=== PATIENT | female | born 1990 | race Caucasian/White ===

== ENCOUNTER → 2016-08-10 | Outpatient (CLI) | payer OTHER ==
[~2016-08-10] MED LIST: AZITTAB PO; BCPILLS PO; ETONMIS VAGRING; HYCUDL5 PO; ZLFUNK
== END | disposition home or self-care (01) ==
LOC: C.PAPS 09:56
PROVIDERS: ATTEND Obstetrics & Gynecology
DX: Z12.4 Encounter for screening for malignant neoplasm of cervix (principal)

== ENCOUNTER → 2016-08-10 | Outpatient (CLI) | payer OTHER | END | disposition home or self-care (01) | LOC: C.LABSPEC 14:49 | PROVIDERS: ATTEND Obstetrics & Gynecology | DX: Z01.419 Encounter for gynecological examination (general) (routine) without abnormal findings (principal); Z11.3 Encounter for screening for infections with a predominantly sexual mode of transmission ==

== ENCOUNTER → 2017-01-05 | Outpatient (CLI) | payer OTHER ==
--- NOTE | 2017-01-05 15:53 | DIAGNOSTIC IMAGING REPORT ---
ULTRASOUND RIGHT VENOUS DOPP LOWER EXT UNILAT CLINICAL HISTORY: Right leg cellulitis. COMPARISON STUDY: No previous studies for comparison. FINDINGS: Real-time and color flow Doppler imaging were performed. Flow was seen within the femoral, popliteal and calf veins with no intraluminal thrombus demonstrated. The saphenous vein is patent. A hypoechoic focus within the subcutaneous portion of the posterior knee, likely represents focal edema. IMPRESSION: No evidence of right lower extremity DVT. Electronically signed by: Isauro Brown M.D. 01/05/2017 3:51 PM Dictated Date/Time: 01/05/2017 3:50 PM
[2017-01-05 16:02] LABS: BASO % 0.3 %; BASO ABS # 0.03 K/uL (0-0.2); COMPLETE YES; EOS % 1.7 %; HEMATOCRIT 38.6 % (37-47); IG% 0.2 %; LYMPH % 20.9 %; LYMPH ABS # 1.92 K/uL (1.2-3.4); MEAN CELL VOLUME 86.7 fL (80-100); MEAN CORPUSCULAR HEMOGLOBIN 30.3 pg (25-34); MEAN PLATELET VOLUME 9.8 fL (7.4-10.4); MONO % 4.9 %; PLATELET COUNT 337 K/uL (130-400); RED BLOOD COUNT 4.45 M/uL (4.2-5.4); WHITE BLOOD COUNT 9.19 K/uL (4.8-10.8)
[2017-01-05 18:29] LABS: LYME DISEASE AB IGG NEG (NEG)
[2017-01-05 18:41] LABS: LYME DISEASE AB IGM POS (NEG)
[2017-01-11 00:01] LABS: 18KDIGG BAND NONREACTIVE (NONREACTIVE); 23KDIGG BAND NONREACTIVE (NONREACTIVE); 23KDIGM BAND REACTIVE (NONREACTIVE); 28KDIGG BAND NONREACTIVE (NONREACTIVE); 30KDIGG BAND NONREACTIVE (NONREACTIVE); 39KDIGG BAND NONREACTIVE (NONREACTIVE); 39KDIGM BAND NONREACTIVE (NONREACTIVE); 41KDIGG BAND REACTIVE (NONREACTIVE); 41KDIGM BAND REACTIVE (NONREACTIVE); 45KDIGG BAND REACTIVE (NONREACTIVE); 58KDIGG BAND NONREACTIVE (NONREACTIVE); 66KDIGG BAND NONREACTIVE (NONREACTIVE); 93KDIGG BAND NONREACTIVE (NONREACTIVE)
== END | disposition home or self-care (01) ==
LOC: C.ULTR 15:10
PROVIDERS: ATTEND Nurse Practitioner
DX: L03.115 Cellulitis of right lower limb (principal)

== ENCOUNTER → 2017-09-29 | Outpatient (CLI) | payer OTHER | END | disposition home or self-care (01) | LOC: C.LAB 06:46 | PROVIDERS: ATTEND Family Medicine | DX: Z00.00 Encounter for general adult medical examination without abnormal findings (principal); Z13.1 Encounter for screening for diabetes mellitus; Z13.220 Encounter for screening for lipoid disorders ==

== ENCOUNTER 2024-01-22 18:57 | Inpatient (IN) ==
[2024-01-22] MEDS ORDERED: OXYTOCIN 30 UNITS/NSS 30 UNITS/500 ML BAG IV PRN (19:50)
[2024-01-22] MEDS ORDERED: LIDOCAINE 1% LOCAL 20 ML VIAL INFIL PRN (19:50)
--- NOTE | 2024-01-22 19:55 | Labor Progress Brief Note ---
Date of Service January 22, 2024 Subjective 33yo @ 39w5d for IOL due to umbilical vein varix and A1GDM. Feng placement unsuccessful due to closed thick and high cervix. Offered cytotec overnight vs return in AM to begin then. Patient agreeable to staying for cytotec. Assessment & Plan (1) GDM (gestational diabetes mellitus): Plan: IOL for GDM, Varix. Cytotec accepted in lieu of Feng which was not able to be placed. Physical Exam Constitutional: WD/WN, vitals as above Eyes: PERRL, conjunctivae normal, anicteric sclerae ENMT: external ear and nose normal, oropharynx normal Neck: supple Respiratory: normal respiratory effort and able to speak in complete sentences; no respiratory distress Cardiovascular: Rate/Rhythm: regular rate and regular rhythm Extremities: + pedal edema Gastrointestinal (Abdomen): Gravid / AGA, nontender Musculoskeletal: no cyanosis or clubbing, extremities motor strength 5/5 Skin: no rashes, warm and dry Psychiatric: A+Ox3, euthymic affect Genitourinary: Speculum/Bimanual Exam: no vaginal lesions, no vaginal bleeding and uterus nontender OB Exam Abdomen: + vertex and + estimated weight (7) Manual OB Exam: + cervical dilation (closed), + cervical effacement (thick), + station high and + amniotic fluid (No leaking evident) OB Exam Monitor Tracing: + external FHT monitor used, + external uterine monitor used and + category I Lymphatic: no cervical or axillary lymphadenopathy Results & Data Vital Signs (Past 12 Hours) Vital Signs Temp Pulse Resp BP 01/22/24 19:07 97.9 F 18 01/22/24 19:03 83 126/66 Coding Level of Care Code None Diagnoses GDM (gestational diabetes mellitus) O24.419
[2024-01-22] MEDS: miSOPROStoL 25 MCG TAB PV ONE (20:10)
[2024-01-22 21:57] LABS: Hematocrit (blood only) 40.4 % (37.0-47.0); Hemoglobin 13.7 g/dl (12.0-16.0); Mean Corpuscular Hgb Conc 33.9 g/dL (32.0-36.0); Mean Corpuscular Volume 88.4 fL (80.0-100.0); Mean Platelet Volume 11.2 fL (9.4-12.4); Platelet Count 276 K/uL (130-400); RDW Coefficient of Variation 13.4 % (11.5-14.5); RDW Standard Deviation 43.6 fL (36.4-46.3); Red Blood Count 4.57 M/uL (4.20-5.40); White Blood Count 11.57 K/ul (4.8-10.8)
[2024-01-23] MEDS: LACTATED RINGER'S 1,000 ML IV PRN (07:08)
--- NOTE | 2024-01-23 07:22 | Labor Progress Brief Note ---
Date of Service January 23, 2024 Subjective Feeling contractions but tolerating them. Assessment & Plan (1) complicated by umbilical cord varix, antepartum: Plan: Since 1st dose of cytotec, patient has been cameron too frequently to allow redosing. As the cervix has meaningfully changed from cl/th/hi and firm to 1/50/-2/soft/post, I think we can stop attempting to repeat cytotec and move on to pitocin. Patient's tolerance of cervical exams is limited and I think this will also be more comfortable for her than reattempting mason balloon at this time. Although an argument could be made for applying the mason while starting pitocin, I think the extra time her labor may take overall without a balloon is still preferable given patient's discomfort with vaginal exams/procedures. (2) GDM (gestational diabetes mellitus): (3) Small for dates affecting management of mother: Admission and Anticipated Discharge Date Admission Date: January 22, 2024 Physical Exam Genitourinary: Cervix soft, 50%, posterior but still closed at beginning of exam. This time, however, I was able to manually dilate to 1cm and palpate the skull. So at completion of exam 1/50/-2. FHT Cat 1 [place] Q3-4, palpate moderate per RN. Results & Data Vital Signs (Past 12 Hours) Vital Signs Temp Pulse Resp BP 01/23/24 02:57 98.1 F 73 18 111/63 01/22/24 23:53 18 01/22/24 23:53 98.1 F 18 01/22/24 23:53 83 01/22/24 23:53 118/58 L 01/22/24 19:07 97.9 F 18 Coding Level of Care Code None Diagnoses complicated by umbilical cord varix, antepartum O26.899 GDM (gestational diabetes mellitus) O24.419 Small for dates affecting management of mother O36.5990
[2024-01-23] MEDS: OXYTOCIN 30 UNITS/NSS 30 UNITS/500 ML BAG IV PRN (08:01)
--- NOTE | 2024-01-23 11:39 | History & Physical Report ---
Date of Service January 23, 2024 Assessment & Plan (1) complicated by umbilical cord varix, antepartum: Plan: Patient admitted last night for induction of labor for umbilical cord varix, rec'd 1 dose cytotec last night after attempt at mason bulb placement andt hen started on pitocin. Pelvic exams are extremely painful for patient, unable to really get a good exam. I discussed with her that would suggest getting an epidural, then will plan for pelvic exam and possibly place mason bulb if needed at that point. She is agreeable. Admission and Anticipated Discharge Date Admission Date: January 22, 2024 History of Present Illness Chief Complaint: IOL Primary Care Provider: Aurelia Iniguez MD 33yo @ 39 12/21, IOL for umbilical vein varix. Umbilical vein varix at 36 wks (seen persistently on our scans) -2x/wk nst/dvp, mfm [id number]-ame seen on MFM scans *IOL 01/23/24 - Rec deliver 39 0/7 - 39 12/21 - echo recommend covid booster GDM *Begin monthly Growth US's Allergies Allergy/AdvReac Type Severity Reaction Status Date / Time No Known Drug Allergies Allergy Unknown Verified 01/22/24 10:21 Home Medications Medication Instructions Recorded Confirmed Type prenat.vits,amanda,[id number] 1 tab PO QAM 04/18/22 01/22/24 History acetone (urine) test (Ketone Urine #50 ea 12/04/23 01/22/24 Rx Test strips) blood sugar diagnostic (OneTouch #150 ea 12/04/23 01/22/24 Rx Verio test strips) blood-glucose meter (OneTouch #1 ea 12/04/23 01/22/24 Rx Verio Reflect Meter) lancets 33 gauge (OneTouch Delica #150 ea 12/04/23 01/22/24 Rx Plus Lancet) Patient History Medical History Varicella vaccination Generalized anxiety disorder Acute Lyme disease Acne, unspecified History of anxiety No current issues Hx of migraines Missed Dysmenorrhea Surgical History Hx of wisdom tooth extraction Family History Grandmother (Maternal) Breast cancer Father Hypertension Aunt Skin cancer Grandfather (Maternal) Stomach cancer Denies family history of Ovarian cancer Prostate cancer Myocardial infarction Colorectal cancer Social History (Updated 06/14/23 @ 14:07 by Mily Lynch) Smoking Status: Never smoker Second Hand Exposure: No; Do You Dip or Chew Tobacco: No; Hx Alcohol Use: No Hx Substance Use: No Preferred Language: Mongolian Communication Ability: Effective Visual Impairment: No Limitations Hearing Ability: Normal Judge Clerk Required: No Beliefs That Will Affect Care: None marital status: marital status details: Chavez Huber (33) [phone] Current Living Situation: Spouse Current Living Situation Comment: Lives with spouse and 1 dog current occupational status: employed current occupation: Volunteer supervisor [employer] Other Information That Helps Us Care for You: No Feels Safe at Home: Yes Childhood Exposure to Second-Hand Smoke: Yes Diet: regular caffeine: Yes during the past year weight has: remained stable Dental Care, Regularly: Yes Physical Activity Frequency: Daily Seatbelt Use: always Assistive Devices: Contacts and Glasses Review of Systems All systems reviewed & are unremarkable except as noted in HPI & below Physical Exam Physical Exam: Unable to perform SVE d/t pain. FHT Cat 1 [place] Q 2 Constitutional: WD/WN, vitals as above Respiratory: normal respiratory effort, lungs clear to auscultation no respiratory distress Cardiovascular: Rate/Rhythm: regular rate and regular rhythm Gastrointestinal (Abdomen): Inspection/Auscultation: abdomen normal to inspection Percussion/Palpation: abdomen soft; abdomen nontender Gravid. No s/s chorio or abruption. Skin: no rashes, warm and dry Psychiatric: A+Ox3, euthymic affect Results & Data Vital Signs (Past 12 Hours) Vital Signs Temp Pulse Resp BP 01/23/24 11:29 83 113/73 01/23/24 11:00 20 01/23/24 11:00 20 01/23/24 10:30 20 01/23/24 10:30 20 01/23/24 10:07 74 117/57 L 01/23/24 09:01 85 102/63 01/23/24 08:02 74 115/68 01/23/24 07:15 36.6 C 20 01/23/24 07:09 77 121/78 07/09/24 02:57 36.7 C 73 18 111/63 01/22/24 23:53 18 01/22/24 23:53 36.7 C 18 01/22/24 23:53 83 01/22/24 23:53 118/58 L Coding Level of Care Code None Diagnoses complicated by umbilical cord varix, antepartum O26.899
--- NOTE | 2024-01-23 12:05 | Delivery Summary ---
Vaginal Delivery Summary Date of Service January 23, 2024 Vaginal Delivery Summary [facility] Vaginal Delivery Summary: Pre-delivery diagnoses: 33yo Post-delivery diagnoses: Procedure: Surgeon: Dayna Arora DO Complications: none Findings: Viable . Apgars: . Weight pending, please see nursery records Estimated blood loss: Description of delivery: The patient progressed to complete with epidural anesthesia. She then began to push. She spontaneously vaginally delivered a viable from the cephalic presentation. The head delivered in RABIA position. The anterior shoulder delivered, followed by the posterior shoulder, followed by the body. The baby was placed on mother's abdomen and a spontaneous cry was heard. Delayed cord clamping was employed, and the cord was doubly clamped and cut. A segment was retained for cord gases. Cord blood was obtained. The placenta was delivered spontaneously intact with a 3-vessel cord. The uterus and vagina were swept of clots and debris. IV pitocin was given. The uterus became firm. The cervix, vagina, and perineum were inspected and no lacerations were noted. Excellent hemostasis was observed. The mother and baby are recovering in stable and good condition in the room. Sponge and instrument counts were correct x 2. Dayna Arora DO [facility] Vaginal Delivery Charge Delivery Type Details: [facility]
--- NOTE | 2024-01-23 12:13 | Anesthesiology Consultation ---
Date of Service January 23, 2024 Assessment & Plan Chart Review Chart Review: Acceptable Risk for Labor Epidural Consults Requested none ASA ASA2 Proposed Anesthesia Anesthesia Type: Labor Epidural Risk / Benefits Reviewed With: PT / POA / Parent / Guardian, Accepts Plan and Informed Consent Obtained History Height/Weight Height: 5 ft 2 in Weight: 77.564 kg Allergies Allergy/AdvReac Type Severity Reaction Status Date / Time No Known Drug Allergies Allergy Unknown Verified 01/22/24 10:21 Medications Home Medications Medication Instructions Recorded Confirmed Last Taken prenat.vits,amanda,[id number] 1 tab PO QAM 04/18/22 01/22/24 01/22/24 09:00 acetone (urine) test (Ketone Urine #50 ea 12/04/23 01/22/24 Unknown Test strips) blood sugar diagnostic (OneTouch #150 ea 12/04/23 01/22/24 Unknown Verio test strips) blood-glucose meter (OneTouch #1 ea 12/04/23 01/22/24 Unknown Verio Reflect Meter) lancets 33 gauge (OneTouch Delica #150 ea 12/04/23 01/22/24 Unknown Plus Lancet) Active Medications Generic Name Dose Route Start Last Admin Trade Name Freq PRN Reason Stop Dose Admin Lactated Ringer's 1,000 mls @ 125 mls/hr 01/22/24 19:50 01/23/24 12:02 Lr IV 01/24/24 19:49 999 mls/hr .Q8H PRN Administration L&D Protocol Protocol Oxytocin 30 units in 500 mls @ 12 mls/hr 01/23/24 06:54 01/23/24 11:30 Pitocin 30 Units/Nss IV 01/25/24 06:53 0.72 units/hr .Q24H PRN 12 mls/hr Labor Induction/Augmentation Titration Protocol 0.72 UNITS/HR Past Medical History Medical History Varicella vaccination Generalized anxiety disorder Acute Lyme disease Acne, unspecified History of anxiety No current issues Hx of migraines Missed Dysmenorrhea Exercise / Class Metabolic Activity II 4-5 Yardwork/Stairs/Walk up hill Past Family History Family History Grandmother (Maternal) Breast cancer Father Hypertension Aunt Skin cancer paternal Grandfather (Maternal) Stomach cancer Denies family history of Ovarian cancer Prostate cancer Myocardial infarction Colorectal cancer Past Surgical History Surgical History Hx of wisdom tooth extraction Past Anesthesia History No Hx of Anesthesia Complications and No Family Hx of Anesthesia Complications History of PONV No Hx of PONV and No Hx of Motion Sickness Social History Smoking Status: Never smoker Do You Dip or Chew Tobacco: No Hx Alcohol Use: No Alcohol type: beer, wine and hard liquor alcohol intake frequency: holidays/special occasions only Hx Substance Use: No substance use type: does not use Physical Exam Vital Signs Last Vital Signs Temp 97.9 F 01/23/24 07:15 Pulse 83 01/23/24 11:29 Resp 20 01/23/24 11:30 BP 113/73 01/23/24 11:29 ENMT Mouth: no dentition abnormality Thyromental Distance: > or= 3.5 Finger Breadths Mallampati Class: II Neck normal visual inspection Respiratory normal respiratory effort Auscultation: lungs clear to auscultation bilaterally Cardiovascular Rate/Rhythm: regular rate and regular rhythm Testing Laboratory Results 01/22/24 20:47
[2024-01-23] MEDS ORDERED: diphenhydrAMINE 50 MG/ML VIAL IV PRN (12:51)
[2024-01-23] MEDS ORDERED: ROPIVACAINE 0.5% PF 5 MG/ML 20 ML VIAL EPI PRN (12:51)
[2024-01-23] MEDS ORDERED: NALBUPHINE HCL 5 MG in SYRINGE 0 ML IV PRN (12:51)
[2024-01-23] MEDS ORDERED: NALOXONE HCL 0.4 MG/1 ML VIAL/CARP IV PRN (12:51)
[2024-01-23] MEDS ORDERED: ePHEDrine sulfate 50 MG/ML AMP IV PRN (12:51)
[2024-01-23] MEDS ORDERED: LIDOCAINE 2% MPF LOCAL 5 ML VIAL EPI PRN (12:51)
[2024-01-23] MEDS ORDERED: NALOXONE HCL 1 MG in SODIUM CHLORIDE 0.9% 1,000 ML IV PRN (12:51)
[2024-01-23] MEDS ORDERED: SODIUM CHLORIDE 0.9% PF INJ 10 ML VIAL EPI PRN (12:51)
[2024-01-23] MEDS ORDERED: ONDANSETRON INJ 2 MG/ML 2 ML VIAL IV PRN (12:51)
[2024-01-23] MEDS: BUPIVACAINE 0.25% PF 30 ML VIAL EPI STA (13:10)
[2024-01-23] MEDS: fentANYL 2 MCG/ML BUPIVacaine 0.125%-NSS 100ML BAG EPI PRN (13:10)
[2024-01-23] MEDS: LIDOCAINE 2%/EPINEPHRINE 1:200,000 20 ML PF EPI STA (13:10)
--- NOTE | 2024-01-23 14:26 | Labor Progress Brief Note ---
Date of Service January 23, 2024 Subjective Patient has now become comfortable after epidural. FHT cat 1 [place] Q 2-4 Mason bulb placed, 35cc sterile water. Tolerated both exam and placement of mason well. Continue pitocin. Assessment & Plan Admission and Anticipated Discharge Date Admission Date: January 22, 2024 Results & Data Vital Signs (Past 12 Hours) Vital Signs Temp Pulse Resp BP Pulse Ox 01/23/24 14:24 70 98 01/23/24 14:23 73 106/71 01/23/24 14:19 72 99 01/23/24 14:14 75 99 01/23/24 14:09 66 98 01/23/24 14:08 68 101/59 L 01/23/24 14:04 71 99 01/23/24 14:00 20 01/23/24 14:00 20 01/23/24 13:59 76 99 01/23/24 13:54 72 108/57 L 99 01/23/24 13:49 74 97 01/23/24 13:44 70 98 01/23/24 13:39 75 94/52 L 98 01/23/24 13:34 76 98 01/23/24 13:30 20 01/23/24 13:30 36.6 C 20 01/23/24 13:29 74 97 01/23/24 13:24 79 99 01/23/24 13:22 164 H 99/58 L 01/23/24 13:20 18 01/23/24 13:20 18 01/23/24 13:19 75 98 01/23/24 13:17 79 114/59 L 01/23/24 13:15 73 20 115/59 L 01/23/24 13:14 80 98 01/23/24 13:13 73 119/62 01/23/24 13:11 79 118/72 01/23/24 13:10 20 01/23/24 13:10 20 01/23/24 13:09 79 97 01/23/24 13:08 76 107/56 L 01/23/24 13:05 74 97/50 L 01/23/24 13:04 75 98 01/23/24 13:01 85 128/78 01/23/24 12:59 107 H 98 01/23/24 12:54 89 99 01/23/24 12:49 80 98 01/23/24 12:45 82 118/62 01/23/24 12:44 84 98 01/23/24 12:41 95 H 149/90 H 01/23/24 12:39 100 H 98 01/23/24 12:38 90 139/60 01/23/24 12:36 89 132/90 01/23/24 12:34 98 01/23/24 12:34 80 01/23/24 12:34 86 135/81 01/23/24 12:30 94 H 167/67 H 01/23/24 12:29 90 97 01/23/24 12:28 86 151/72 H 01/23/24 12:26 89 144/65 H 01/23/24 12:24 99 01/23/24 12:24 93 H 01/23/24 12:24 90 143/83 H 01/23/24 12:19 100 H 89 L 01/23/24 12:15 83 136/77 01/23/24 12:14 89 100 01/23/24 12:00 20 01/23/24 12:00 20 01/23/24 11:30 20 01/23/24 11:30 20 01/23/24 11:29 83 113/73 01/23/24 11:00 20 01/23/24 11:00 20 01/23/24 10:30 20 01/23/24 10:30 20 01/23/24 10:07 74 117/57 L 01/23/24 09:01 85 102/63 01/23/24 08:02 74 115/68 01/23/24 07:15 36.6 C 20 01/23/24 07:09 77 121/78 01/23/24 02:57 36.7 C 73 18 111/63 Coding Level of Care Code None
[2024-01-23] MEDS: fentaNYL citrate PF 100 MCG/2 ML VIAL EPI STA (15:44)
[2024-01-23] MEDS: SODIUM CHLORIDE 0.9% PF INJ 10 ML VIAL EPI STA (15:44)
[2024-01-23] MEDS ORDERED: NURSING L&D Epidural Breakthrough Pain Update ONE (19:28)
--- NOTE | 2024-01-23 20:07 | Labor Progress Brief Note ---
Date of Service January 23, 2024 Subjective Feng bulb is out. FHT Cat 1 [place] Q 2-4 SVE 5/80/-1 AROM clear fluid. Continue pitocin. Assessment & Plan Admission and Anticipated Discharge Date Admission Date: January 22, 2024 Results & Data Vital Signs (Past 12 Hours) Vital Signs Temp Pulse Resp BP Pulse Ox 01/23/24 20:04 95 H 99 01/23/24 19:59 66 99 01/23/24 19:54 71 98 01/23/24 19:52 72 119/69 01/23/24 19:49 68 98 01/23/24 19:44 71 98 01/23/24 19:39 76 97 01/23/24 19:37 72 113/68 01/23/24 19:34 75 98 01/23/24 19:29 67 98 01/23/24 19:24 71 98 01/23/24 19:23 68 112/67 01/23/24 19:19 66 98 01/23/24 19:14 67 99 01/23/24 19:09 67 108/70 98 01/23/24 19:04 73 98 01/23/24 19:01 36.8 C 18 01/23/24 19:00 20 01/23/24 19:00 20 01/23/24 18:59 75 98 01/23/24 18:54 99 01/23/24 18:54 74 01/23/24 18:54 75 105/58 L 01/23/24 18:49 84 98 01/23/24 18:44 81 98 01/23/24 18:39 104 H 98 01/23/24 18:38 75 108/59 L 01/23/24 18:34 86 98 01/23/24 18:30 20 01/23/24 18:30 20 01/23/24 18:29 79 98 01/23/24 18:25 68 99/58 L 01/23/24 18:24 68 98 01/23/24 18:19 72 98 01/23/24 18:14 72 98 01/23/24 18:09 74 101/58 L 98 01/23/24 18:07 73 100/59 L 01/23/24 18:04 71 98 01/23/24 18:00 18 01/23/24 18:00 18 01/23/24 17:59 96 H 98 07/09/24 17:54 80 98 01/23/24 17:53 68 98/53 L 01/23/24 17:49 96 H 99 01/23/24 17:44 73 99 01/23/24 17:39 98 01/23/24 17:39 64 01/23/24 17:39 69 98/56 L 01/23/24 17:34 72 99 01/23/24 17:30 20 01/23/24 17:30 20 01/23/24 17:29 65 97 01/23/24 17:24 63 97 01/23/24 17:23 67 99/52 L 01/23/24 17:19 65 98 01/23/24 17:14 68 98 01/23/24 17:09 75 99 01/23/24 17:04 61 98 01/23/24 17:00 20 01/23/24 17:00 20 01/23/24 16:59 65 98 01/23/24 16:54 67 98 01/23/24 16:52 67 104/57 L 01/23/24 16:49 65 97 01/23/24 16:44 63 97 01/23/24 16:39 62 97 01/23/24 16:38 60 111/58 L 01/23/24 16:34 69 97 01/23/24 16:30 20 01/23/24 16:30 20 01/23/24 16:29 70 97 01/23/24 16:24 76 133/67 98 01/23/24 16:19 67 97 01/23/24 16:15 36.7 C 01/23/24 16:14 74 98 01/23/24 16:09 67 98 01/23/24 16:07 68 104/61 01/23/24 16:04 64 98 01/23/24 16:00 20 01/23/24 16:00 20 01/23/24 15:59 60 98 01/23/24 15:54 62 98 01/23/24 15:53 63 105/58 L 01/23/24 15:49 64 98 01/23/24 15:44 66 98 01/23/24 15:39 60 98 01/23/24 15:37 63 102/58 L 01/23/24 15:34 63 97 01/23/24 15:30 20 01/23/24 15:30 20 01/23/24 15:29 62 98 01/23/24 15:24 98 01/23/24 15:24 66 01/23/24 15:24 64 100/57 L 01/23/24 15:19 59 L 98 01/23/24 15:14 59 L 97 01/23/24 15:09 59 L 98 01/23/24 15:07 58 L 96/53 L 01/23/24 15:04 59 L 98 01/23/24 15:00 20 01/23/24 15:00 20 01/23/24 14:59 64 97 01/23/24 14:54 60 98 01/23/24 14:52 62 107/65 01/23/24 14:49 61 98 01/23/24 14:44 61 98 01/23/24 14:39 62 98 01/23/24 14:37 60 106/65 01/23/24 14:34 61 98 01/23/24 14:30 20 01/23/24 14:30 20 01/23/24 14:29 63 97 01/23/24 14:24 70 98 01/23/24 14:23 73 106/71 01/23/24 14:19 72 99 01/23/24 14:14 75 99 01/23/24 14:09 66 98 01/23/24 14:08 68 101/59 L 01/23/24 14:04 71 99 01/23/24 14:00 20 01/23/24 14:00 20 01/23/24 13:59 76 99 01/23/24 13:54 72 108/57 L 99 01/23/24 13:49 74 97 01/23/24 13:44 70 98 01/23/24 13:39 75 94/52 L 98 01/23/24 13:34 76 98 01/23/24 13:30 20 01/23/24 13:30 36.6 C 20 01/23/24 13:29 74 97 01/23/24 13:24 79 99 01/23/24 13:22 164 H 99/58 L 01/23/24 13:20 18 01/23/24 13:20 18 01/23/24 13:19 75 98 01/23/24 13:17 79 114/59 L 01/23/24 13:15 73 20 115/59 L 01/23/24 13:14 80 98 01/23/24 13:13 73 119/62 01/23/24 13:11 79 118/72 01/23/24 13:10 20 01/23/24 13:10 20 01/23/24 13:09 79 97 01/23/24 13:08 76 107/56 L 01/23/24 13:05 74 97/50 L 01/23/24 13:04 75 98 01/23/24 13:01 85 128/78 01/23/24 12:59 107 H 98 01/23/24 12:54 89 99 01/23/24 12:49 80 98 01/23/24 12:45 82 118/62 01/23/24 12:44 84 98 01/23/24 12:41 95 H 149/90 H 01/23/24 12:39 100 H 98 01/23/24 12:38 90 139/60 01/23/24 12:36 89 132/90 01/23/24 12:34 98 01/23/24 12:34 80 01/23/24 12:34 86 135/81 01/23/24 12:30 94 H 167/67 H 01/23/24 12:29 90 97 01/23/24 12:28 86 151/72 H 01/23/24 12:26 89 144/65 H 01/23/24 12:24 99 01/23/24 12:24 93 H 01/23/24 12:24 90 143/83 H 01/23/24 12:19 100 H 89 L 01/23/24 12:15 83 136/77 01/23/24 12:14 89 100 01/23/24 12:00 20 01/23/24 12:00 20 01/23/24 11:35 36.6 C 01/23/24 11:30 20 01/23/24 11:30 20 01/23/24 11:29 83 113/73 01/23/24 11:00 20 01/23/24 11:00 01/23/24 10:30 20 01/23/24 10:30 20 01/23/24 10:07 74 117/57 L 01/23/24 09:01 85 102/63 Coding Level of Care Code None
[2024-01-24] MEDS: BUPIVACAINE 0.25% PF 30 ML VIAL EPI PRN (00:20)
[2024-01-24] MEDS: fentaNYL citrate PF 100 MCG/2 ML VIAL EPI PRN (00:20)
--- NOTE | 2024-01-24 00:33 | Anesthesia Procedure Note ---
Date of Service January 24, 2024 Anesthesia Epidural Re-Dose Vital Signs Temp Pulse Resp BP Pulse Ox 98.2 F 69 18 96/53 L 96 01/23/24 23:58 01/24/24 00:30 01/23/24 23:58 01/24/24 00:30 01/24/24 00:30 Notes Pain Intensity: 4 Dilatation (cm): 5.0 Effacement (%): 80 Called by nursing to evaluate epidural as the patient is having increased pain. The epidural was re-dosed with the following medications after negative aspiration of the epidural catheter for CSF/HEME. 3mL of 0.25% Bupivacaine and 50 mcg of fentanyl After Epidural Re-Dose Mental Status: alert / awake / arousable Pain: improving with treatment Airway Patency, RR, SpO2: stable & adequate BP & HR: stable & adequate
[2024-01-24] MEDS ORDERED: Nursing to Pharmacy Communication SCH (01:00)
--- NOTE | 2024-01-24 02:24 | Labor Progress Brief Note ---
Date of Service January 24, 2024 Subjective Comfortable with epidural. FHT Cat 1 [employer] Q 2 SVE 8/100/0 Continue labor. Assessment & Plan Admission and Anticipated Discharge Date Admission Date: January 22, 2024 Results & Data Vital Signs (Past 12 Hours) Vital Signs Temp Pulse Resp BP Pulse Ox 01/24/24 02:21 99 H 98 01/24/24 02:16 77 100 01/24/24 02:10 58 L 99 01/24/24 02:05 58 L 98 01/24/24 02:00 99 01/24/24 02:00 62 01/24/24 02:00 61 95/51 L 01/24/24 01:55 55 L 98 01/24/24 01:50 55 L 98 01/24/24 01:45 66 98 01/24/24 01:44 55 L 96/53 L 01/24/24 01:40 55 L 97 01/24/24 01:35 55 L 98 01/24/24 01:30 98 01/24/24 01:30 57 L 01/24/24 01:30 59 L 95/54 L 01/24/24 01:25 54 L 98 01/24/24 01:20 56 L 98 01/24/24 01:15 64 97 01/24/24 01:14 69 95/50 L 01/24/24 01:10 65 98 01/24/24 01:05 64 97 01/24/24 01:00 55 L 98 01/24/24 00:59 58 L 92/50 L 01/24/24 00:55 60 97 01/24/24 00:53 58 L 90/54 L 01/24/24 00:50 60 97 01/24/24 00:48 59 L 97/52 L 01/24/24 00:45 60 97 01/24/24 00:43 59 L 100/53 L 01/24/24 00:40 61 97 01/24/24 00:38 64 18 98/56 L 01/24/24 00:35 66 97 01/24/24 00:32 68 100/58 L 01/24/24 00:30 69 96/53 L 96 01/24/24 00:28 77 92/52 L 01/24/24 00:25 98 01/24/24 00:25 70 01/24/24 00:25 68 105/63 01/24/24 00:19 74 98 01/24/24 00:14 64 98 01/24/24 00:09 66 98 01/24/24 00:07 68 106/57 L 01/24/24 00:04 76 98 01/23/24 23:59 76 98 01/23/24 23:58 18 01/23/24 23:58 36.8 C 18 01/23/24 23:54 89 99 01/23/24 23:53 105 H 123/57 L 01/23/24 23:49 86 98 01/23/24 23:44 76 98 01/23/24 23:39 73 98 01/23/24 23:38 74 103/58 L 01/23/24 23:34 70 98 01/23/24 23:29 70 98 01/23/24 23:24 80 94/53 L 98 01/23/24 23:19 70 97 01/23/24 23:14 62 97 01/23/24 23:09 69 95/51 L 98 01/23/24 23:04 69 97 01/23/24 22:59 69 96 01/23/24 22:54 74 97 01/23/24 22:52 67 87/54 L 01/23/24 22:49 65 97 01/23/24 22:44 67 97 01/23/24 22:39 68 85/51 L 97 01/23/24 22:34 65 97 01/23/24 22:29 76 97 01/23/24 22:24 72 97 01/23/24 22:22 65 90/54 L 01/23/24 22:19 69 97 01/23/24 22:14 71 98 01/23/24 22:10 82 99/55 L 01/23/24 22:09 82 96 01/23/24 22:06 18 01/23/24 22:06 36.7 C 18 01/23/24 22:04 89 98 01/23/24 21:59 72 97 01/23/24 21:54 69 115/61 97 01/23/24 21:49 77 98 01/23/24 21:44 71 98 01/23/24 21:39 77 98 01/23/24 21:38 77 119/71 01/23/24 21:34 75 98 01/23/24 21:29 72 98 01/23/24 21:24 70 97 01/23/24 21:23 75 115/76 01/23/24 21:19 77 97 01/23/24 21:14 72 98 01/23/24 21:09 73 99 01/23/24 21:08 73 113/77 01/23/24 21:04 70 98 01/23/24 20:59 82 99 01/23/24 20:54 71 99 01/23/24 20:53 77 121/64 01/23/24 20:49 84 99 01/23/24 20:44 80 98 01/23/24 20:39 78 99 01/23/24 20:38 85 115/73 01/23/24 20:34 76 98 01/23/24 20:29 81 98 01/23/24 20:25 100 H 116/70 01/23/24 20:24 98 H 96 01/23/24 20:19 107 H 98 01/23/24 20:15 18 01/23/24 20:15 36.5 C 18 01/23/24 20:14 80 97 01/23/24 20:09 95 H 97 01/23/24 20:08 85 129/66 01/23/24 20:04 95 H 99 01/23/24 19:59 66 99 01/23/24 19:54 71 98 01/23/24 19:52 72 119/69 01/23/24 19:49 68 98 01/23/24 19:44 71 98 01/23/24 19:39 76 97 01/23/24 19:37 72 113/68 01/23/24 19:34 75 98 01/23/24 19:29 67 98 01/23/24 19:24 71 98 01/23/24 19:23 68 112/67 01/23/24 19:19 66 98 01/23/24 19:14 67 99 01/23/24 19:09 67 108/70 98 01/23/24 19:04 73 98 01/23/24 19:01 36.8 C 18 01/23/24 19:00 20 01/23/24 19:00 20 01/23/24 18:59 75 98 01/23/24 18:54 99 01/23/24 18:54 74 01/23/24 18:54 75 105/58 L 01/23/24 18:49 84 98 01/23/24 18:44 81 98 01/23/24 18:39 104 H 98 01/23/24 18:38 75 108/59 L 01/23/24 18:34 86 98 01/23/24 18:30 20 01/23/24 18:30 20 01/23/24 18:29 79 98 01/23/24 18:25 68 99/58 L 01/23/24 18:24 68 98 01/23/24 18:19 72 98 01/23/24 18:14 72 98 01/23/24 18:09 74 101/58 L 98 01/23/24 18:07 73 100/59 L 01/23/24 18:04 71 98 01/23/24 18:00 18 01/23/24 18:00 18 01/23/24 17:59 96 H 98 01/23/24 17:54 80 98 01/23/24 17:53 68 98/53 L 01/23/24 17:49 96 H 99 01/23/24 17:44 73 99 01/23/24 17:39 98 01/23/24 17:39 64 01/23/24 17:39 69 98/56 L 01/23/24 17:34 72 99 01/23/24 17:30 20 01/23/24 17:30 20 01/23/24 17:29 65 97 01/23/24 17:24 63 97 01/23/24 17:23 67 99/52 L 01/23/24 17:19 65 98 01/23/24 17:14 68 98 01/23/24 17:09 75 99 01/23/24 17:04 61 98 01/23/24 17:00 20 01/23/24 17:00 20 01/23/24 16:59 65 98 01/23/24 16:54 67 98 01/23/24 16:52 67 104/57 L 01/23/24 16:49 65 97 01/23/24 16:44 63 97 01/23/24 16:39 62 97 01/23/24 16:38 60 111/58 L 01/23/24 16:34 69 97 01/23/24 16:30 20 01/23/24 16:30 20 01/23/24 16:29 70 97 01/23/24 16:24 76 133/67 98 01/23/24 16:19 67 97 01/23/24 16:15 36.7 C 01/23/24 16:14 74 98 01/23/24 16:09 67 98 01/23/24 16:07 68 104/61 01/23/24 16:04 64 98 01/23/24 16:00 20 01/23/24 16:00 20 01/23/24 15:59 60 98 01/23/24 15:54 62 98 01/23/24 15:53 63 105/58 L 01/23/24 15:49 64 98 01/23/24 15:44 66 98 01/23/24 15:39 60 98 01/23/24 15:37 63 102/58 L 01/23/24 15:34 63 97 01/23/24 15:30 20 01/23/24 15:30 20 01/23/24 15:29 62 98 01/23/24 15:24 98 01/23/24 15:24 66 01/23/24 15:24 64 100/57 L 01/23/24 15:19 59 L 98 01/23/24 15:14 59 L 97 01/23/24 15:09 59 L 98 01/23/24 15:07 58 L 96/53 L 01/23/24 15:04 59 L 98 01/23/24 15:00 20 01/23/24 15:00 20 01/23/24 14:59 64 97 01/23/24 14:54 60 98 01/23/24 14:52 62 107/65 01/23/24 14:49 61 98 01/23/24 14:44 61 98 01/23/24 14:39 62 98 01/23/24 14:37 60 106/65 01/23/24 14:34 61 98 01/23/24 14:30 20 01/23/24 14:30 20 01/23/24 14:29 63 97 01/23/24 14:24 70 98 Coding Level of Care Code None
--- NOTE | 2024-01-24 08:00 | Labor Progress Brief Note ---
Date of Service January 24, 2024 Subjective ready to push. does not seem to feel ctx. caput at +3 per nurse Assessment & Plan (1) Encounter for induction of labor: (2) complicated by umbilical cord varix, antepartum: (3) GDM (gestational diabetes mellitus): Plan now ready to push. aware i am assuming care. fhts categ 1. Admission and Anticipated Discharge Date Admission Date: January 22, 2024 Physical Exam Constitutional: WD/WN, vitals as above Genitourinary: OB Exam Monitor Tracing: + external FHT monitor used (140 baseline, mod variability), + external uterine monitor used, + category I and + normal FHT variability Results & Data Vital Signs (Past 12 Hours) Vital Signs Temp Pulse Resp BP Pulse Ox 01/24/24 07:56 100 H 01/24/24 07:51 84 98 01/24/24 07:46 97 H 121/61 98 01/24/24 07:45 95 H 85 L 01/24/24 07:41 78 97 01/24/24 07:36 86 98 01/24/24 07:31 92 H 97 01/24/24 07:30 85 20 103/49 L 01/24/24 07:26 89 98 01/24/24 07:21 79 97 01/24/24 07:16 78 97 01/24/24 07:14 76 120/54 L 01/24/24 07:11 86 97 01/24/24 07:10 20 01/24/24 07:10 98.4 F 20 01/24/24 07:06 83 97 01/24/24 07:01 66 96 01/24/24 07:00 68 104/58 L 01/24/24 06:56 83 97 01/24/24 06:51 74 97 01/24/24 06:46 81 97 01/24/24 06:44 76 98/55 L 01/24/24 06:41 98 H 98 01/24/24 06:36 68 97 01/24/24 06:31 67 97 01/24/24 06:29 70 103/55 L 01/24/24 06:26 67 98 01/24/24 06:21 68 98 01/24/24 06:16 68 98 01/24/24 06:14 73 102/57 L 01/24/24 06:11 89 99 01/24/24 06:06 67 98 01/24/24 06:01 82 99 01/24/24 06:00 74 100/56 L 01/24/24 05:56 68 98 01/24/24 05:51 72 97 01/24/24 05:46 69 98 01/24/24 05:45 76 96/53 L 01/24/24 05:41 82 98 01/24/24 05:36 81 98 01/24/24 05:31 109 H 98 01/24/24 05:30 97 H 114/65 01/24/24 05:26 99.0 F 86 18 98 01/24/24 05:21 107 H 98 01/24/24 05:16 79 98 01/24/24 05:14 85 125/71 01/24/24 05:11 75 98 01/24/24 05:06 77 97 01/24/24 05:01 77 97 01/24/24 04:59 77 124/65 01/24/24 04:56 76 97 01/24/24 04:51 75 97 01/24/24 04:46 70 98 01/24/24 04:44 80 119/60 01/24/24 04:41 74 98 01/24/24 04:36 70 98 01/24/24 04:31 73 98 01/24/24 04:29 85 106/57 L 01/24/24 04:26 68 98 01/24/24 04:21 71 98 01/24/24 04:16 67 99 01/24/24 04:15 92 H 111/62 01/24/24 04:11 70 99 01/24/24 04:06 99 H 98 01/24/24 04:01 71 99 01/24/24 04:00 69 104/54 L 01/24/24 03:56 72 99 01/24/24 03:51 82 99 01/24/24 03:50 18 01/24/24 03:50 98.1 F 18 01/24/24 03:46 107 H 100 01/24/24 03:44 75 107/56 L 01/24/24 03:41 79 98 01/24/24 03:36 92 H 99 01/24/24 03:31 105 H 97 01/24/24 03:30 116 H 121/75 01/24/24 03:26 105 H 97 01/24/24 03:21 115 H 98 01/24/24 03:16 105 H 98 01/24/24 03:11 91 H 99 01/24/24 03:06 72 98 01/24/24 03:01 72 98 01/24/24 02:59 68 110/63 01/24/24 02:56 69 98 01/24/24 02:51 77 98 01/24/24 02:46 82 98 01/24/24 02:45 71 100/58 L 01/24/24 02:41 69 98 01/24/24 02:36 71 98 01/24/24 02:31 89 98 01/24/24 02:30 73 98/54 L 01/24/24 02:26 76 98 01/24/24 02:21 99 H 98 01/24/24 02:19 16 01/24/24 02:19 98.2 F 16 01/24/24 02:16 77 100 01/24/24 02:10 58 L 99 01/24/24 02:05 58 L 98 01/24/24 02:00 99 01/24/24 02:00 62 01/24/24 02:00 61 95/51 L 01/24/24 01:55 55 L 98 01/24/24 01:50 55 L 98 01/24/24 01:45 66 98 01/24/24 01:44 55 L 96/53 L 01/24/24 01:40 55 L 97 01/24/24 01:35 55 L 98 01/24/24 01:30 98 01/24/24 01:30 57 L 01/24/24 01:30 59 L 95/54 L 01/24/24 01:25 54 L 98 01/24/24 01:20 56 L 98 01/24/24 01:15 64 97 01/24/24 01:14 69 95/50 L 01/24/24 01:10 65 98 01/24/24 01:05 64 97 01/24/24 01:00 55 L 98 01/24/24 00:59 58 L 92/50 L 01/24/24 00:55 60 97 01/24/24 00:53 58 L 90/54 L 01/24/24 00:50 60 97 01/24/24 00:48 59 L 97/52 L 01/24/24 00:45 60 97 01/24/24 00:43 59 L 100/53 L 01/24/24 00:40 61 97 01/24/24 00:38 64 18 98/56 L 01/24/24 00:35 66 97 01/24/24 00:32 68 100/58 L 01/24/24 00:30 69 96/53 L 96 01/24/24 00:28 77 92/52 L 01/24/24 00:25 98 01/24/24 00:25 70 01/24/24 00:25 68 105/63 01/24/24 00:19 74 98 01/24/24 00:14 64 98 01/24/24 00:09 66 98 01/24/24 00:07 68 106/57 L 01/24/24 00:04 76 98 01/23/24 23:59 76 98 01/23/24 23:58 18 01/23/24 23:58 98.2 F 18 01/23/24 23:54 89 99 01/23/24 23:53 105 H 123/57 L 01/23/24 23:49 86 98 01/23/24 23:44 76 98 01/23/24 23:39 73 98 01/23/24 23:38 74 103/58 L 01/23/24 23:34 70 98 01/23/24 23:29 70 98 01/23/24 23:24 80 94/53 L 98 01/23/24 23:19 70 97 01/23/24 23:14 62 97 01/23/24 23:09 69 95/51 L 98 01/23/24 23:04 69 97 01/23/24 22:59 69 96 01/23/24 22:54 74 97 01/23/24 22:52 67 87/54 L 01/23/24 22:49 65 97 01/23/24 22:44 67 97 01/23/24 22:39 68 85/51 L 97 01/23/24 22:34 65 97 01/23/24 22:29 76 97 01/23/24 22:24 72 97 01/23/24 22:22 65 90/54 L 01/23/24 22:19 69 97 01/23/24 22:14 71 98 01/23/24 22:10 82 99/55 L 01/23/24 22:09 82 96 01/23/24 22:06 18 01/23/24 22:06 98.1 F 18 01/23/24 22:04 89 98 01/23/24 21:59 72 97 01/23/24 21:54 69 115/61 97 01/23/24 21:49 77 98 01/23/24 21:44 71 98 01/23/24 21:39 77 98 01/23/24 21:38 77 119/71 01/23/24 21:34 75 98 01/23/24 21:29 72 98 01/23/24 21:24 70 97 01/23/24 21:23 75 115/76 01/23/24 21:19 77 97 01/23/24 21:14 72 98 01/23/24 21:09 73 99 01/23/24 21:08 73 113/77 01/23/24 21:04 70 98 01/23/24 20:59 82 99 01/23/24 20:54 71 99 01/23/24 20:53 77 121/64 01/23/24 20:49 84 99 01/23/24 20:44 80 98 01/23/24 20:39 78 99 01/23/24 20:38 85 115/73 01/23/24 20:34 76 98 01/23/24 20:29 81 98 01/23/24 20:25 100 H 116/70 01/23/24 20:24 98 H 96 01/23/24 20:19 107 H 98 01/23/24 20:15 18 01/23/24 20:15 97.7 F 18 01/23/24 20:14 80 97 01/23/24 20:09 95 H 97 01/23/24 20:08 85 129/66 01/23/24 20:04 95 H 99 01/23/24 19:59 66 99 Coding Level of Care Code None Diagnoses Encounter for induction of labor Z34.90 complicated by umbilical cord varix, antepartum O26.899 GDM (gestational diabetes mellitus) O24.419
--- NOTE | 2024-01-24 08:54 | Delivery Summary ---
Vaginal Delivery Summary Date of Service January 24, 2024 Vaginal Delivery Summary and 2nd Degree LAC The patient dilated to complete and pushed to deliver a viable female infant Apgars 8 and 9 via over 2nd degree perineal laceration. Mouth and nose bulb suctioned at perineum. Shoulders and body delivered with ease. Infant was vigorous and crying at . Cord clamped at 40 seconds of life and infant to maternal abdomen where the cord was then doubly clamped and cut. Placenta delivered spontaneously and intact, three-vessel cord. Hemostasis achieved with dilute pitocin and uterine massage. Laceration repaired with 3-0 vicryl in usual fashion and left labial separation reapproximated with 4-0 vicryl. Cervix and sulci intact. QBL 260 cc. Mother and baby stable in recovery. [facility] Charge Delivery Type Details: and 2nd Degree LAC
[2024-01-24] MEDS ORDERED: HYDROCORTISONE ACETATE 25 MG SUPP PR PRN (09:39)
[2024-01-24] MEDS ORDERED: DIPHTHER/TETAN/PERTUS Vaccine (Tdap, Adol/Adult) 0.5mL IM ONE (09:39)
[2024-01-24] MEDS ORDERED: ACETAMINOPHEN 325 MG TAB PO PRN (09:39)
[2024-01-24] MEDS ORDERED: oxyCODONE/ACETAMINOPHEN 5mg/325mg TAB PO PRN (09:39)
[2024-01-24] MEDS ORDERED: OXYTOCIN 30 UNITS/NSS 30 UNITS/500 ML BAG IV PRN (09:43)
[2024-01-24] MEDS: OXYTOCIN 20 UNITS/LR 1,002 ML IV SCH (10:21)
--- NOTE | 2024-01-24 10:30 | Anesthesia Procedure Note ---
Date of Service January 24, 2024 Anesthesia Post Epidural Note Vital Signs Vital Signs: Temp Pulse Resp BP Pulse Ox 37.4 C 74 20 108/60 89 L 01/24/24 08:55 01/24/24 10:01/24/24 09:55 01/24/24 10:01/24/24 08:50 Pain Intensity Lower Back: Pain Intensity: 2 Notes Mental Status: alert / awake / arousable and participated in evaluation Nausea / Vomiting: adequately controlled Pain: adequately controlled Airway Patency, RR, SpO2: stable & adequate BP & HR: stable & adequate Hydration State: stable & adequate Neuraxial Anesthesia: was administered and sensory block is resolving Anesthetic Complications: no major complications apparent Epidural: Removed without complications and With tip intact Notes: Patient had accidental dural puncture during procedure. Currently denies JOSEPH, vision changes, tinnitus. Counseled patient on signs and symptoms to look for in regards to PDPH and to contact us if any new symptoms arise.
[2024-01-24] MEDS: BENZOCAINE 20% SPRY 85 APPLN/85 GM CAN EXT PRN (11:07)
[2024-01-24] MEDS: IBUPROFEN 600 MG TAB PO PRN (11:07)
[2024-01-24] MEDS ORDERED: ACETAMINOPHEN SUSP 325 MG/10.15 ML UDC PO PRN (12:20)
[2024-01-24] MEDS ORDERED: IBUPROFEN 600 MG TAB PO PRN (12:20)
[2024-01-24] MEDS ORDERED: IBUPROFEN 200 MG/10 ML UDC PO PRN (12:23)
[2024-01-24] MEDS ORDERED: oxyCODONE HCL SOLN 5 MG/5 ML UDC PO PRN (12:24)
[2024-01-24] MEDS: DOCUSATE SODIUM 100 MG CAP PO SCH (20:26)
--- NOTE | 2024-01-25 06:12 | Obstetrical Progress Note ---
Date of Service <Brandon Flannery DO - Last Filed: 01/25/24 07:17> January 25, 2024 Assessment & Plan <Brandon Flannery DO - Last Filed: 01/25/24 07:17> (1) Encounter for assessment: Patient is PPD 1 s/p and doing well - Eating well, voiding well, ambulating well - vitals reviewed and within normal limits - pain well controlled with analgesics - OOB, ambulation, diet progression as tolerated - Blood type: B+, GBS neg, rubella immune - Plan to discharge today - After discharge, 6 week follow up with OB visit type: exam and care immediately after delivery Qualified Code(s): Z39.0 - Encounter for care and examination of mother immediately after delivery <Felicita Santos MD, FACOG - Last Filed: 01/25/24 07:25> (1) Encounter for assessment: Subjective <Brandon Flannery DO - Last Filed: 01/25/24 07:17> 33 yo post- day 1 s/p w/ sutured 2 degree perineal laceration and hx of GDM Ambulation: ambulating normally Voiding: no voiding problems Passing Gas:: Yes Diet Tolerance:: regular diet Lochia:: Small Feeding Type:: breast feeding Current Pain Level: 2/10 Resting comfortably this AM in NAD. Denies JOSEPH, CP, SOB, N/V/D, LE pain/swelling. Physical Exam <Brandon Flannery DO - Last Filed: 01/25/24 07:17> General: patient resting comfortably, NAD, non-toxic in appearance, answers questions appropriately. Skin: warm, dry, intact HEENT: NC/AT, anicteric sclera, conjunctiva without injection, moist mucus membranes. Heart: +S1/S2, regular, no m/r/g Lungs: equal air entry bilaterally, no rales/rhonchi/wheezes Abd: +BS, soft, NT/ND, uterine fundus firm at umbilicus Ext: warm, no clubbing/cyanosis or edema, John's neg. Neuro: nonfocal, speech intact, no facial droop, moving all extremities. Results & Data <Brandon Flannery DO - Last Filed: 01/25/24 07:17> Vital Signs (Past 12 Hours) Vital Signs Temp Pulse Resp BP Pulse Ox O2 Del Method 01/25/24 04:04 36.6 C 72 16 99/64 L 98 Room Air 01/24/24 23:50 36.5 C 78 16 113/75 99 Room Air 01/24/24 20:30 36.8 C 80 18 113/75 98 Room Air Supervising Physician <Felicita Santos MD, FACOG - Last Filed: 01/25/24 07:25> Co-Signing Physician Notes Resident Physician Supervision Note: I was present with Dr. Flannery during the history and exam. I discussed the case with the resident and agree with the findings and plan as documented in the note. Any exceptions or clarifications are listed here: Patient doing well. Eating, voiding, ambulating without issue. Breast feeding. Desires dc home. Abd soft ff 2 down nt, Ext nt calves. PPD#1 s/p . DC home, instructions reviewed. f/u 6 wk pp. breast, rhpos, ri. Documented By: Felicita Santos MD, FACOG Resident Activity Tracking <Brandon Flannery DO - Last Filed: 01/25/24 07:17> Resident Involvement: Resident Care Provided Care Provided: OB Delivery
[2024-01-25] MEDS: PRENATAL VITAMIN 1 TAB PO SCH (08:33)
[2024-01-25] MEDS ORDERED: bisacodyL 5 MG TABEC PO SCH (20:00)
== END 2024-01-25 14:45 | disposition home or self-care (01) | DRG 807 ==
LOC: OPB 18:57 → 4S1 18:58 → 4E2 01-24 11:53